=== PATIENT | female | born 2000 | race Caucasian/White ===

== ENCOUNTER 2020-10-23 20:40 | Emergency (ER) | payer MEDICAID ==
--- NOTE | 2020-10-24 11:02 | ER ---
DATE SEEN: 10/23/2020 REASON FOR VISIT: testing. HISTORY OF PRESENT ILLNESS: This is a 20-year-old female, whose last period was September 21. She would like a test. She has no symptoms. She is sexually active. REVIEW OF SYSTEMS: No fever. All other systems negative. MEDICATIONS: Reviewed. PHYSICAL EXAMINATION: VITAL SIGNS: Temperature is 98.0, blood pressure is normal. MENTAL STATUS: Alert. SKIN: No pallor or jaundice. NEUROLOGIC: Normal. IMPRESSION: Encounter for test. PLAN: Negative test was obtained. The patient was discharged. /[id number] TN/MODL
== END 2020-10-23 22:58 | disposition home or self-care (01) ==
LOC: FB.ED 20:40
DX: Z32.02 Encounter for pregnancy test, result negative (principal)
CPT/HCPCS: 81025; 99282